=== PATIENT | female | born 1950 ===

== ENCOUNTER 2023-05-08 14:51 | Outpatient (OUT) | payer MEDICARE, SELFPAY ==
--- NOTE | 2023-05-01 14:17 | XR_ITS ---
The [address] [address] Patient Name: ALMA JIMENEZ MRN: [id number] date: 1950 Sex: F Assigned Patient Location: [facility] Current Patient Location: [facility] Accession/Order Number: [id number] Exam Date: 05/01/2023 14:17 Report Date: 05/02/2023 09:58 At the request of: ALBINA NORIEGA Procedure: XR ankle RT min 3V PROCEDURE: XR ankle RT min 3V HISTORY: RIGHT ANKLE PAIN COMPARISON: XR ankle bilateral 05/28/2019 FINDINGS: BONES:Prior plate and screw repair of distal fibula/lateral malleolus and fusion of tibia-fibula syndesmosis. Prior repair of medial malleolus via 2 lag screws. No evidence of hardware fracture or loosening. No bone fracture dislocation. Intact ankle mortise. SOFT TISSUES:No visible soft tissue swelling. EFFUSION:None visible. OTHER: Negative. XR/XR ankle RT min 3V IMPRESSION: 1. Stable surgical repair of distal fibula, medial malleolus, and fusion of the syndesmosis. No visible fracture. 2. No evidence of hardware failure or change in alignment. Electronically authenticated by: FLORI MAC Date: 05/02/2023 09:58
== END 2023-05-08 14:52 | disposition home or self-care (01) ==
LOC: RAD 14:51
PROVIDERS: Visit Provider Physician Assistant
DX: M25.571 Pain in right ankle and joints of right foot (principal)
CPT/HCPCS: 73610